=== PATIENT | female | born 1955 | race Caucasian/White ===

== ENCOUNTER 2016-10-30 14:35 | Inpatient (IN) | payer MEDICAID, OTHER ==
[~2016-10-30] VITALS: Ht 165.1 cm; Wt 83.6 kg
[~2016-10-30 14:35] MED LIST: BENZ1TAB70 PO; CLON.5 PO; GABA600T PO; QUET300T2 PO; RISP1 PO
[2016-10-30] MEDS ORDERED: METF500T4 PO (14:42)
[2016-10-30 15:28] LABS: BASOPHILS % (AUTO) 0.5 % (0.0-2.0); EOSINOPHILS % (AUTO) 1.7 % (1.0-6.0); HEMATOCRIT 44.4 % (36-46); HEMOGLOBIN 14.4 g/dL (12.0-16.0); LYMPHOCYTES # (AUTO) 2.5 K/uL (1.0-4.8); LYMPHOCYTES % (AUTO) 24.4 % (22.0-44.0); MEAN CORPUSCULAR HEMOGLOBIN 28.7 pg (26.0-34.0); MEAN CORPUSCULAR HGB CONC 32.4 G/dL (31.0-37.0); MEAN CORPUSCULAR VOLUME 89 fL (80-100); MONOCYTES # (AUTO) 0.8 K/uL (0.1-1.0); MONOCYTES % (AUTO) 7.4 % (2.0-9.0); NEUTROPHILS # (AUTO) 6.7 K/uL (1.8-7.7); PLATELET COUNT (AUTO) 366 K/uL (150-450); RED CELL DISTRIBUTION WIDTH 16.1 % (11.5-14.5); WHITE BLOOD COUNT (AUTO) 10.2 K/uL (4.5-11.0)
[2016-10-30 15:37] LABS: ANION GAP 9 mmol/L (8-16); CALCIUM, TOTAL 9.1 mg/dL (8.8-10.5); CARBON DIOXIDE 28 mmol/L (22-29); CHLORIDE 100 mmol/L (98-107); CREATININE 0.85 mg/dL (0.60-1.30); GLOMERULAR FILTR. RATE CALC > 60 mL/min (>60); POTASSIUM 4.2 mmol/L (3.5-5.1); SODIUM SERUM 137 mmol/L (136-145); UREA NITROGEN, BLOOD 10 mg/dL (7-18)
[2016-10-30 15:44] LABS: ALANINE AMINOTRANSFERASE 37 U/L (12-78); ALBUMIN 3.6 g/dL (3.4-5.0); ASPARTATE AMINOTRANSFERASE 16 U/L (15-37); BILIRUBIN,TOTAL 0.3 mg/dL (0.1-1.0); TOTAL PROTEIN, SERUM 7.3 g/dL (6.4-8.2)
[2016-10-30] MEDS ORDERED: HALOPERIDOL 5 MG TABLET PO PRN (18:30)
[2016-10-30] MEDS ORDERED: LORazepam 2 MG TABLET PO ONE (18:30)
[2016-10-30] MEDS ORDERED: ZOLPIDEM TARTRATE 10 MG TABLET PO PRN (18:30)
[2016-10-30] MEDS ORDERED: HYDROCORTISONE 1% 30 GM OINTMENT TP PRN (20:45)
[2016-10-30] MEDS ORDERED: DEXTROSE 50%-WATER 25 GM/50 ML SYRINGE IVP PRN (20:45)
[2016-10-30 20:54] VITALS: BP 158/70
[2016-10-31 06:07] LABS: GLUCOSE,POINT OF CARE 238 MG/DL (70-110)
[2016-10-31] MEDS: LORazepam 2 MG TABLET PO PRN ×3 (06:18→15:52)
[2016-10-31 06:45] VITALS: BP 131/71
[2016-10-31] MEDS: MetFORMIN HCL 500 MG TABLET PO SCH ×2 (07:05→17:14)
[2016-10-31] MEDS: INSULIN ASPART 100 UNITS/ML SQ PRN ×2 (07:11→17:10)
[2016-10-31 07:12] LABS: HEMOGLOBIN A1C 8.6 % (4.5-6.2)
[2016-10-31 07:41] LABS: CHOL/HDL RATIO 6.5 (3.9-5.7); THYROID STIMULATING HORMONE 1.5 uIU/mL (0.36-3.74)
[2016-10-31 08:45] VITALS: BP 140/69
[2016-10-31] MEDS: LISINOPRIL 20 MG TABLET PO SCH (09:28)
[2016-10-31 16:01] LABS: GLUCOSE COMMENT 1 Received Meds; GLUCOSE,POINT OF CARE 185 MG/DL (70-110)
[2016-10-31 16:30] VITALS: BP 141/84
[2016-10-31] MEDS: ClonazePAM 0.5 MG TABLET PO SCH (20:51)
[2016-10-31] MEDS: GABAPENTIN 300 MG CAPSULE PO SCH (20:51)
[2016-11-01] MEDS: LORazepam 2 MG TABLET PO PRN ×3 (01:00→16:56)
[2016-11-01 05:46] LABS: GLUCOSE,POINT OF CARE 211 MG/DL (70-110)
[2016-11-01 06:32] VITALS: BP 132/73
[2016-11-01] MEDS: LISINOPRIL 20 MG TABLET PO SCH (08:25)
[2016-11-01] MEDS: CITALOPRAM HYDROBROMIDE 20 MG TABLET PO SCH (08:25)
[2016-11-01 09:05] VITALS: BP 157/77
[2016-11-01 16:30] VITALS: BP 137/79
[2016-11-01 16:55] LABS: GLUCOSE COMMENT 1 Received Meds; GLUCOSE,POINT OF CARE 160 MG/DL (70-110)
[2016-11-01] MEDS: GEMFIBROZIL 600 MG TABLET PO SCH (16:56)
[2016-11-01] MEDS: INSULIN ASPART 100 UNITS/ML SQ PRN (16:57)
[2016-11-01] MEDS: MetFORMIN HCL 500 MG TABLET PO SCH (17:24)
[2016-11-01] MEDS: GlyBURIDE 5 MG TABLET PO SCH (17:24)
[2016-11-01] MEDS: ClonazePAM 0.5 MG TABLET PO SCH (20:32)
[2016-11-01] MEDS: GABAPENTIN 300 MG CAPSULE PO SCH (20:32)
[2016-11-02 03:05] VITALS: BP 126/72
[2016-11-02] MEDS: LORazepam 2 MG TABLET PO PRN ×2 (03:07→11:19)
[2016-11-02 05:37] LABS: GLUCOSE,POINT OF CARE 155 MG/DL (70-110)
[2016-11-02] MEDS: GlyBURIDE 5 MG TABLET PO SCH ×2 (06:41→17:23)
[2016-11-02] MEDS: MetFORMIN HCL 500 MG TABLET PO SCH ×2 (06:41→17:23)
[2016-11-02] MEDS: GEMFIBROZIL 600 MG TABLET PO SCH ×2 (06:41→16:31)
[2016-11-02] MEDS: INSULIN ASPART 100 UNITS/ML SQ PRN ×2 (06:44→17:08)
[2016-11-02 08:15] VITALS: BP 137/79
[2016-11-02] MEDS: LISINOPRIL 20 MG TABLET PO SCH (10:23)
[2016-11-02] MEDS: CITALOPRAM HYDROBROMIDE 20 MG TABLET PO SCH (10:23)
[2016-11-02 16:36] LABS: GLUCOSE COMMENT 1 Received Meds; GLUCOSE,POINT OF CARE 149 MG/DL (70-110)
[2016-11-02 17:03] VITALS: BP 125/61
[2016-11-02] MEDS: ClonazePAM 0.5 MG TABLET PO SCH (20:19)
[2016-11-02] MEDS: GABAPENTIN 300 MG CAPSULE PO SCH (20:19)
[2016-11-03] MEDS: LORazepam 2 MG TABLET PO PRN ×2 (00:19→09:17)
[2016-11-03 02:00] VITALS: BP 128/76
[2016-11-03 05:42] LABS: GLUCOSE,POINT OF CARE 141 MG/DL (70-110)
[2016-11-03] MEDS: GEMFIBROZIL 600 MG TABLET PO SCH ×2 (05:43→16:59)
[2016-11-03] MEDS: MetFORMIN HCL 500 MG TABLET PO SCH ×2 (06:42→17:00)
[2016-11-03] MEDS: GlyBURIDE 5 MG TABLET PO SCH ×2 (06:43→17:00)
[2016-11-03] MEDS: INSULIN ASPART 100 UNITS/ML SQ PRN ×2 (06:46→17:11)
[2016-11-03 08:00] VITALS: BP 110/59
[2016-11-03] MEDS: LISINOPRIL 20 MG TABLET PO SCH (09:00)
[2016-11-03] MEDS: CITALOPRAM HYDROBROMIDE 20 MG TABLET PO SCH (09:15)
[2016-11-03 17:07] LABS: GLUCOSE,POINT OF CARE 142 MG/DL (70-110)
[2016-11-03 17:54] VITALS: BP 111/62
[2016-11-03] MEDS: GABAPENTIN 300 MG CAPSULE PO SCH (20:30)
[2016-11-03] MEDS: ClonazePAM 0.5 MG TABLET PO SCH (20:30)
[2016-11-03] MEDS ORDERED: GABA-318 PO (21:00)
[2016-11-03] MEDS ORDERED: CITA20TA9 PO (21:02)
== END 2016-11-03 21:45 | disposition home or self-care (01) | DRG 750 ==
LOC: EMS 14:40 → 3EI 18:58
PROVIDERS: ADMIT Psychiatry & Neurology Psychiatry; ATTEND Psychiatry & Neurology Psychiatry
DX: F25.9 Schizoaffective disorder, unspecified (principal); E11.42 Type 2 diabetes mellitus with diabetic polyneuropathy; R45.851 Suicidal ideations; F32.9 Major depressive disorder, single episode, unspecified; J44.9 Chronic obstructive pulmonary disease, unspecified; F17.210 Nicotine dependence, cigarettes, uncomplicated; F15.90 Other stimulant use, unspecified, uncomplicated; Z88.8 Allergy status to other drugs, medicaments and biological substances; Z79.899 Other long term (current) drug therapy; Z98.890 Other specified postprocedural states; Z59.0 Homelessness; Z87.81 Personal history of (healed) traumatic fracture; E78.5 Hyperlipidemia, unspecified
CPT/HCPCS: 82962; 83036; 84439; 84443; 99285; G0480